=== PATIENT | female | born 1960 | race Caucasian/White ===

== ENCOUNTER 2019-11-15 17:31 | Emergency (ER) | payer OTHER ==
[~2019-11-15] VITALS: Ht 165 cm; Wt 61.0 kg
[~2019-11-15 17:31] MED LIST: TRM50T PO
--- NOTE | 2019-11-15 18:05 | ED GI ---
General Chief Complaint: Abdominal/GI Problems Stated Complaint: BRADYCARDIA Nursing Triage Note: PT CO OF R UPPER ABD PAIN SINCE ABOUT 1300 TODAY, RATES PAIN 8/10. PT DENIES N/V/D Sepsis Screen: No Definite Risk Source of Information: Patient Exam Limitations: No Limitations History of Present Illness Date Seen by Provider: Nov 15, 2019 Time Seen by Provider: 18:04 Initial Comments To ER with right upper abdominal pain since about 1:30 today. She ate a salad at noon. The pain was sudden in onset and has not relented since onset. Occasional ly she has heartburn but nothing like this. No nausea with this. Timing/Duration: 1-2 Days Severity/Quality: Moderate Location: RUQ Radiation: No Radiation Activities at Onset: None Allergies and Home Medications Allergies Coded Allergies: Sulfa (Sulfonamide Antibiotics) (Verified Allergy, Unknown, 11/15/19) Home Medications No Active Prescriptions or Reported Meds Patient Home Medication List Home Medication List Reviewed: Yes Review of Systems Review of Systems Constitutional: see HPI EENTM: No Symptoms Reported Respiratory: No Symptoms Reported Cardiovascular: No Symptoms Reported Gastrointestinal: See HPI, Abdominal Pain Genitourinary: No Symptoms Reported Musculoskeletal: no symptoms reported Skin: no symptoms reported Psychiatric/Neurological: No Symptoms Reported Endocrine: No Symptoms Reported Hematologic/Lymphatic: No Symptoms Reported Past Orxwjup-Eeqyea-Rhpnen Hx Patient Social History Alcohol Use: Denies Use Recreational Drug Use: No Smoking Status: Never a Smoker Recent Foreign Travel: No Contact w/Someone Who Travel: No Recent Infectious Disease Expo: No Recent Hopitalizations: No Immunizations Up To Date Tetanus Booster (TDap): More than 5yrs Seasonal Allergies Seasonal Allergies: Yes Past Medical History Surgeries: Yes Respiratory: No Cardiac: No Neurological: No Gastrointestinal: No Musculoskeletal: No Endocrine: No Cancer: No Psychosocial: No Integumentary: No Blood Disorders: No Family Medical History No Pertinent Family Hx Physical Exam Vital Signs Vital Signs - First Documented 11/15/19 17:36 Temp 36.3 Pulse 78 Resp 18 B/P (MAP) 143/90 (107) Pulse Ox 99 Capillary Refill : Less Than 3 Seconds Height/Weight/BMI Height: '" Weight: lbs. oz. kg; 22.00 BMI Method:Stated General Appearance: WD/WN, no apparent distress Respiratory: no respiratory distress, no accessory muscle use Gastrointestinal: normal bowel sounds, non tender, soft; No tenderness Extremities: normal range of motion, non-tender Neurologic/Psychiatric: alert, normal mood/affect, oriented x 3 Skin: normal color, warm/dry Progress/Results/Core Measures Results/Orders Vital Signs/I&O 11/15/19 17:36 Temp 36.3 Pulse 78 Resp 18 B/P (MAP) 143/90 (107) Pulse Ox 99 Blood Pressure Mean: 107 Departure Communication (Admissions) NAME: [facility] REC#: [id number] PT STATUS: REG ER : 1960 PHYSICIAN: TAYLA TRUJILLO APRN ADMIT DATE: 11/15/19/ER Draft Date of Exam:11/15/19 CT ABDOMEN/PELVIS W CT ABDOMEN/PELVIS W PROCEDURE: CT abdomen and pelvis with contrast. TECHNIQUE: Multiple contiguous axial images were obtained through the abdomen and pelvis after administration of intravenous contrast. INDICATION: Right upper quadrant abdominal pain and nausea COMPARISON: None. FINDINGS: No focal hepatic or splenic abnormalities identified. Gallbladder has a normal appearance. There may be mild prominence of the extrahepatic bile ducts, however, no stone is appreciated. No pancreatic or adrenal gland abnormality identified. Kidneys are unremarkable. There is moderate to large amount of stool in the right colon. Bladder is unopacified which limits evaluation. There is an approximately 5.3 x 7.2 cm cyst in the left adnexal region. IMPRESSION: No definite acute abnormalities identified, however, there is a dominant left hemipelvic cyst. This may be ovarian in nature. Consideration could be given to follow-up pelvic ultrasonography for further characterization. Dictated on workstation # [id number] Dict: 11/15/192001 Trans: 11/15/192005 MIKHAIL [id number] Interpreted by: JOSÉ MIGUEL PORTILLO MD Electronically signed by: Impression Primary Impression: Right upper quadrant pain Disposition: 01 HOME, SELF-CARE Condition: Stable Departure-Patient Inst. Decision time for Depature: 18:47 Referrals: YVON DUGGAN MD, BETHANY N MD NO,LOCAL PHYSICIAN (PCP) Primary Care Physician MARCELINO MURDOCK DO Patient Instructions: No Instuctions Given Add. Discharge Instructions: 1. Follow-up with your primary health care provider to discuss obtaining an ultrasound of the gallbladder and the cystic structure in the left side of the pelvis.. In the meantime if you do not already then you should take yjad-rnw-[id number] omeprazole 2 tablets (20 mg a piece) daily for the next 15 days to see if this helps with symptoms. You are also a little constipated, taking one cap full of MiraLAX twice a day for the next 3 or 4 days with a good idea. Scripts No Active Prescriptions or Reported Meds TAYLA TRUJILLO APRN Nov 15, 2019 18:05
[2019-11-15 18:08] LABS: BASOPHILS % (AUTO) 0 % (0-10); EOSINOPHILS # (AUTO) 0.3 10^3/uL (0.0-0.3); EOSINOPHILS % (AUTO) 3 % (0-10); HEMATOCRIT 41 % (35-52); LYMPHOCYTES # (AUTO) 2.1 X 10^3 (1.0-4.0); LYMPHOCYTES % (AUTO) 27 % (12-44); MEAN CORPUSCULAR HEMOGLOBIN 31 PG (25-34); MEAN CORPUSCULAR HGB CONC 34 G/DL (32-36); MEAN CORPUSCULAR VOLUME 91 FL (80-99); MEAN PLATELET VOLUME 9.8 FL (7.4-10.4); MONOCYTES # (AUTO) 0.9 X 10^3 (0.0-1.0); MONOCYTES % (AUTO) 11 % (0-12); NEUTROPHILS # (AUTO) 4.6 X 10^3 (1.8-7.8); NEUTROPHILS % (AUTO) 58 % (42-75); PLATELET COUNT 297 10^3/uL (130-400); RED CELL DISTRIBUTION WIDTH 13.4 % (10.0-14.5); WHITE BLOOD COUNT 7.9 10^3/uL (4.3-11.0)
[2019-11-15 18:19] LABS: ALANINE AMINOTRANSFERASE 17 U/L (0-55); ALBUMIN 4.5 GM/DL (3.2-4.5); ALKALINE PHOSPHATASE 85 U/L (40-136); BILIRUBIN,TOTAL 0.3 MG/DL (0.1-1.0); BUN/CREATININE RATIO 18; CALCIUM 9.9 MG/DL (8.5-10.1); CARBON DIOXIDE 26 MMOL/L (21-32); CHLORIDE 106 MMOL/L (98-107); CREATININE SERUM 0.74 MG/DL (0.60-1.30); GFR ESTIMATED > 60; GLUCOSE 89 MG/DL (70-105); LIPASE 23 U/L (8-78); POTASSIUM 3.6 MMOL/L (3.6-5.0); SODIUM 142 MMOL/L (135-145); TOTAL PROTEIN 7.4 GM/DL (6.4-8.2)
[2019-11-15] MEDS ORDERED: LIDOCAINE 2% VISCOUS 15 ML UDC PO ONE (18:30)
[2019-11-15] MEDS ORDERED: KETOROLAC 30 MG/ML VIAL IVP ONE (18:30)
[2019-11-15] MEDS ORDERED: ANTACID SUSP 30 ML UDC (MYLANTA) PO ONE (18:30)
--- NOTE | 2019-11-15 18:54 | NUR ---
REPORT TO PAN MARTINEZ
[2019-11-15 19:12] VITALS: BP 157/98
[2019-11-15] MEDS ORDERED: fentaNYL INJECTION 100 MCG/2 ML AMP IVP ONE (19:15)
[2019-11-15] MEDS ORDERED: NS 100 ML (IVPB) BAG IV ONE (19:30)
[2019-11-15] MEDS ORDERED: IOHEXOL 350 MG/ML 100 ML (OMNIPAQUE 350) VIAL IV ONE (19:30)
[2019-11-15] MEDS ORDERED: HOLD METFORMIN - RECEIVED CONTRAST 20 ML VIAL IV SCH (19:30)
--- NOTE | 2019-11-15 20:06 | Diagnostic Imaging Report ---
CT ABDOMEN/PELVIS W PROCEDURE: CT abdomen and pelvis with contrast. TECHNIQUE: Multiple contiguous axial images were obtained through the abdomen and pelvis after administration of intravenous contrast. INDICATION: Right upper quadrant abdominal pain and nausea COMPARISON: None. FINDINGS: No focal hepatic or splenic abnormalities identified. Gallbladder has a normal appearance. There may be mild prominence of the extrahepatic bile ducts, however, no stone is appreciated. No pancreatic or adrenal gland abnormality identified. Kidneys are unremarkable. There is moderate to large amount of stool in the right colon. Bladder is unopacified which limits evaluation. There is an approximately 5.3 x 7.2 cm cyst in the left adnexal region. IMPRESSION: No definite acute abnormalities identified, however, there is a dominant left hemipelvic cyst. This may be ovarian in nature. Consideration could be given to follow-up pelvic ultrasonography for further characterization. Dictated by: Dictated on workstation # [id number]
[2019-11-15 20:18] VITALS: BP 161/88
--- OUTSIDE RECORDS SUMMARY | 2019-11-25 15:13 | XMS REPORT | Continuity of Care Document ---
Author Author [facility] Organization [facility] Address Unknown Phone Unavailable Care Team Providers Care Claim Attorney Name Role Phone NO, LOCAL PHYSICIAN PP Unavailable Insurance Providers Payer Name Policy Number Subscriber Name Relationship Self Pay AnthonyMaya 01 Self / Same As Patient Advance Directives Directive Response Recor ded Date Advance Directives N 11:19am Organ Donor Y 03/20/13 1 1:19am Problems No Known Problems or Medical conditions. Social History History Response Recorde d Date/Time Alcohol Use Occasionally Uses 03/20/13 11:19am Recreational Drug Use N 03/20/13 11:19am Allergies, Adverse Reactions, Alerts Allergen Type Severity Reaction Last Updated No Known Drug Allergies 03/20/13 Medications Medication Dose Units Route Sig Qty Days Tramadol HCl (Ultram) 50 Mg PO Q4H 14 Immunizations Name Given Type DTaP 03/20/13 A Response Recorded Date/Time Status not known Unknown Results No Known Relevant Diagnostic Tests, Laboratory Data and/or Discharge Summary. Encounters Encounter Location Date/ Time Departed Emergency Room [facility] 03/22/13 2:22pm
--- OUTSIDE RECORDS SUMMARY | 2019-11-25 15:13 | XMS REPORT | Continuity of Care Document ---
Author Author [facility] Organization [facility] Address Unknown Phone Unavailable Care Team Providers Care Ovens Supervisor Name Role Phone NO, LOCAL PHYSICIAN PP Unavailable Insurance Providers Payer Name Policy Number Subscriber Name Relationship Unknown Maya Anthony Advance Directives Directive Response Recor ded Date [...] Encounter Location Date/ Time Departed Emergency Room [facility] 03/20/13 10:57am
--- OUTSIDE RECORDS SUMMARY | 2019-11-25 15:14 | XMS REPORT | Continuity of Care Document ---
Author Organization Unknown Address Unknown Phone Unavailable Allergies Active Description Code Type Severity Reaction Onset Reported/Identified Relationship to Patient Clinical Status Yes No Known Drug Allergies [id number] Drug Allergy Unknown N/A 03/20/2013 Yes Sulfa (Sulfonamide Antibiotics) [id number] Drug Allergy Unknown N/A 020 Medications There is no data. Problems There is no data. Procedures There is no data. Results Test Result Range Complete blood count (CBC) with automate d white blood cell (WBC) differential - 11/15/19 17:54 Blood leukocytes automated count (number/volume) 7.9 10*3/uL 4.3-11.0 Blood erythrocytes automated count (number/volume) 4.51 10*6/uL 4.35-5.85 Venous blood hemoglobin measurement (mass/volume) 14.0 g/dL 11.5-16.0 Blood hematocrit (volume fraction) 41 % 35-52 Automated erythrocyte mean corpuscular volume 91 [ foz_us] 80-99 Automated erythrocyte mean corpuscular h emoglobin (mass per erythrocyte) 31 pg 25-34 Automated erythrocyte mean corpuscular h emoglobin concentration measurement (mass/volume) 34 g/dL 32-36 Automated erythrocyte distribution width ratio 13. 4 % 10.0- 14.5 Automated blood platelet count (count/volume) 297 10*3/uL 130-400 Automated blood platelet mean volume measurement 9.8 [foz_us] 7.4-10.4 Automated blood neutrophils/100 leukocytes 58 % 42-75 Automated blood lymphocytes/100 leukocytes 27 % 12-44 Blood monocytes/100 leukocytes 11 % 0-12 Automated blood eosinophils/100 leukocytes 3 % 0-10 Automated blood basophils/100 leukocytes 0 % 0-10 Blood neutrophils automated count (number/volume) 4.6 10*3 1.8-7.8 Blood lymphocytes automated count (number/volume) 2.1 10*3 1.0-4.0 Blood monocytes automated count (number/volume) 0. 9 10*3 0.0-1.0 Automated eosinophil count 0.3 10*3/uL 0 .0-0.3 Automated blood basophil count (count/volume) 0.0 10*3/uL 0.0-0.1 Comprehensive metabolic panel - 11/15/19 17:54 Serum or plasma sodium measurement (moles/volume) 142 mmol/L 135-145 Serum or plasma potassium measurement (moles/volume) 3.6 mmol/L 3.6-5.0 Serum or plasma chloride measurement (moles/volume) 106 mmol/L 98-107 Carbon dioxide 26 mmol/L 21-32 Serum or plasma anion gap determination (moles/volume) 10 mmol/L 5-14 Serum or plasma urea nitrogen measurement (mass/volume ) 13 mg/dL 7-18 Serum or plasma creatinine measurement (mass/volume) 0.74 mg/dL 0.60-1.30 Serum or plasma urea nitrogen/creatinine mass ratio 18 NRG Serum or plasma creatinine measurement w ith calculation of estimated glomerular filtration rate > NRG Serum or plasma glucose measurement (mass/volume) 89 mg/dL 70-105 Serum or plasma calcium measurement (mass/volume) 9.9 mg/dL 8.5-10.1 Serum or plasma total bilirubin measurement (mass/volu me) 0.3 mg/dL 0.1-1.0 Serum or plasma alkaline phosphatase urszula surement (enzymatic activity/volume) 85 U/L 40-136 Serum or plasma aspartate aminotransfera se measurement (enzymatic activity/volume) 19 U/L 5-34 Serum or plasma alanine aminotransferase measurement (enzymatic activity/volume) 17 U/L 0-55 Serum or plasma protein measurement (mass/volume) 7.4 g/dL 6.4-8.2 Serum or plasma albumin measurement (mass/volume) 4.5 g/dL 3.2-4.5 CALCIUM CORRECTED 9.5 mg/dL 8.5-10.1 Lipase - 11/15/19 17:54 Lipase 23 U/L 8-78 Encounters ACCT No. Visit Date/Time Discharge Status Pt. Type Provider Facility Loc./Unit Complaint [id number] 11/15/2019 17:33:00 020 20:21:00 DIS Emergency TAYLA TRUJILLO APRN [facility] ER PAIN IN RIGHT SIDE [id number] 03/22/2013 14:22:00 013 15:14:00 DIS Emergency [id number] 03/20/2013 10:57:00 013 12:35:00 DIS Emergency
--- OUTSIDE RECORDS SUMMARY | 2019-11-25 15:53 | XMS REPORT | Continuity of Care Document ---
Author Organization Unknown Address Unknown Phone Unavailable Allergies Active Description Code Type Severity Reaction Onset Reported/Identified Relationship to Patient Clinical Status Yes No Known Drug Allergies [id number] Drug Allergy Unknown N/A 03/20/2013 Yes Sulfa (Sulfonamide Antibiotics) [id number] Drug Allergy Unknown N/A 020 Medications [...] Status Pt. Type Provider Facility Loc./Unit Complaint [id number] 11/15/2019 17:33:00 020 20:21:00 DIS Emergency TAYLA TRUJILLO APRN [facility] ER PAIN IN RIGHT SIDE [id number] 03/22/2013 14:22:00 013 15:14:00 DIS Emergency [id number] 03/20/2013 10:57:00 013 12:35:00 DIS Emergency
== END 2019-11-15 20:21 | disposition home or self-care (01) ==
LOC: EDUNIT# 17:31 → ER 17:33 → ICU 17:47 → UNDOADMIN 17:47 → ER 20:21
DX: R10.11 Right upper quadrant pain (principal); Z88.2 Allergy status to sulfonamides
CPT/HCPCS: 36415; 74177; 80053; 83690; 85025; 96374; 96375